=== PATIENT | female | born 1960 | race American Indian/Alaskan Native ===

== ENCOUNTER 2018-06-16 13:28 | Emergency (ER) | payer SELFPAY ==
[2018-06-16 13:46] VITALS: BP 155/71
[2018-06-16] MEDS ORDERED: ASPIRIN PO ONE (13:46)
[2018-06-16 14:10] LABS: Basophils % (Auto) 0.5 % (0.0-1.8); Eosinophils # (Auto) 0.1 K/mm3 (0.0-0.4); Eosinophils % (Auto) 1.9 % (0.0-4.3); Hematocrit 33.5 % (30.3-42.9); Hemoglobin 11.3 gm/dl (10.1-14.3); Lymphocytes # (Auto) 1.4 K/mm3 (1.2-5.4); Lymphocytes % (Auto) 24.9 % (13.4-35.0); Mean Corpuscular HGB Conc 34 % (30-34); Mean Corpuscular Hemoglobin 30 pg (28-32); Mean Corpuscular Volume 90 fl (79-97); Monocytes # (Auto) 0.5 K/mm3 (0.0-0.8); Monocytes % (Auto) 8.2 % (0.0-7.3); Platelet Count 162 K/mm3 (140-440); Red Blood Count 3.73 M/mm3 (3.65-5.03); Red Cell Distribution Width 14.4 % (13.2-15.2)
[2018-06-16 14:57] LABS: BUN/Creatinine Ratio 18; Blood Urea Nitrogen 16 mg/dL (7-17); Calcium 9.5 mg/dL (8.4-10.2); Hemolysis Index 5
--- NOTE | 2018-06-16 15:04 | Emergency Department Report ---
ED General Adult HPI - General Chief complaint: Chest Pain Stated complaint: CHEST/STOMACH PAIN Time Seen by Provider: 06/16/18 14:45 Source: patient Mode of arrival: Ambulatory Limitations: No Limitations - History of Present Illness Initial comments: Ms. Quezada is a 58 yo female with hx of hypertension and hypercholesterolemia who was recently admitted at Hospital in [place] for a total of 2 weeks. She came to be with her family members 2 days ago. She was diagnosed with CVA, GERD and gastritis. She still has persistent dizziness chest pain abdominal pain. The symptoms were investigated while she was hospitalized. She now feels nervous at night. She has had epigastric pain radiating to the chest. She has a warm feeling in the back of her head. - Related Data Allergies Allergy/AdvReac Type Severity Reaction Status Date / Time No Known Allergies Allergy Unverified 06/16/18 13:45 ED Review of Systems ROS: Stated complaint: CHEST/STOMACH PAIN Other details as noted in HPI Comment: All other systems reviewed and negative Constitutional: denies: fever, malaise Respiratory: denies: cough Cardiovascular: denies: chest pain ED Past Medical Hx - Past Medical History Hx Hypertension: Yes Hx CVA: Yes Additional medical history: dyslipdemia - Surgical History Past Surgical History?: No - Social History Smoking Status: Never Smoker Substance Use Type: None ED Physical Exam - General Limitations: No Limitations General appearance: alert, in no apparent distress - Head Head exam: Present: atraumatic, normocephalic - Eye Eye exam: Present: normal appearance - ENT ENT exam: Present: mucous membranes moist - Neck Neck exam: Present: normal inspection. Absent: tenderness, meningismus - Respiratory Respiratory exam: Present: normal lung sounds bilaterally. Absent: respiratory distress, wheezes, rales, rhonchi - Cardiovascular Cardiovascular Exam: Present: regular rate, normal rhythm, normal heart sounds. Absent: bradycardia, tachycardia, systolic murmur, diastolic murmur, rubs, gallop - GI/Abdominal GI/Abdominal exam: Present: soft, normal bowel sounds. Absent: distended, tenderness, guarding, rebound - Extremities Exam Extremities exam: Present: normal inspection - Back Exam Back exam: Present: normal inspection - Neurological Exam Neurological exam: Present: alert, oriented X3 - Psychiatric Psychiatric exam: Present: normal affect, normal mood - Skin Skin exam: Present: warm, dry, intact, normal color. Absent: rash ED Course Vital Signs 06/16/18 13:41 Temperature 98.9 F Pulse Rate 64 Respiratory 16 Rate Blood Pressure 155/71 O2 Sat by Pulse 100 Oximetry ED Medical Decision Making - Lab Data Result diagrams: 06/16/18 13:59 06/16/18 13:59 Laboratory Results - last 24 hr 06/16/18 06/16/18 13:59 13:59 WBC 5.8 RBC 3.73 Hgb 11.3 Hct 33.5 MCV 90 MCH 30 MCHC 34 RDW 14.4 Plt Count 162 Lymph % (Auto) 24.9 Baxter % (Auto) 8.2 H Eos % (Auto) 1.9 Baso % (Auto) 0.5 Lymph # 1.4 Baxter # 0.5 Eos # 0.1 Baso # 0.0 Seg Neutrophils % 64.5 Seg Neutrophils # 3.7 Sodium 142 Potassium 4.2 Chloride 103.9 Carbon Dioxide 28 Anion Gap 14 BUN 16 Creatinine 0.9 Estimated GFR > 60 BUN/Creatinine Ratio 18 Glucose 95 Calcium 9.5 Troponin T < 0.010 Vital Signs - 24 hr 06/16/18 13:41 Temperature 98.9 F Pulse Rate 64 Respiratory 16 Rate Blood Pressure 155/71 O2 Sat by Pulse 100 Oximetry - EKG Data -: EKG Interpreted by Me - EKG Data 06/16/18 15:06 NSR rate 60 bpm nl axis prolonged CA intervals no ST elevation no signs of ischemia - Medical Decision Making Ms. Quezada has had one month of symptoms according to medical records provided. She has dizziness, epigastric pain, chest pain. Now she feels nervous. She was diagnosed with CVA, GERD and gastritis. She is being appropriately treated with clopidogrel, enalapril, atovastatin and GI medications. I reviewed MRI which revealed remote infarct. Echocardiogram was normal. GI consultation dx'd patient with GERD and gastritis. She will require primary care, PT, OT, stroke rehab. I have referred her to [facility] and given her list of resources. I have consulted case management who spoke with patient and daughter. cbc, troponin, chemistry within normal limits Critical care attestation.: If time is entered above; I have spent that time in minutes in the direct care of this critically ill patient, excluding procedure time. ED Disposition Clinical Impression: History of CVA (cerebrovascular accident), Gastritis, GERD (gastroesophageal reflux disease), Chest pain, Abdominal pain Disposition: [id number] TO HOME OR SELFCARE Is pt being admited?: No Does the pt Need Aspirin: No Condition: Stable Instructions: Chest Pain (ED), Acute Abdominal Pain (ED), Dizziness (ED) Referrals: [facility] [Outside] - 3-5 Days
== END 2018-06-16 15:26 | disposition home or self-care (01) ==
LOC: ED 13:28
DX: K21.9 Gastro-esophageal reflux disease without esophagitis (principal); K29.60 Other gastritis without bleeding; I10 Essential (primary) hypertension; E78.5 Hyperlipidemia, unspecified; Z86.73 Personal history of transient ischemic attack (TIA), and cerebral infarction without residual deficits
CPT/HCPCS: 36415; 80048; 84484; 85025; 93005; 93010